=== PATIENT | female | born 1995 | race Two or more races ===

== ENCOUNTER 2019-12-22 04:47 | Emergency (ER) | payer OTHER ==
[~2019-12-22] VITALS: Ht 160 cm; Wt 59.0 kg
[2019-12-22] MEDS ORDERED: PROMETH-CODEIN 65 ML PO ×2 (06:10→06:12)
[2019-12-22] MEDS ORDERED: TESSALON PERLE100 M1 PO ×2 (06:10→06:12)
== END 2019-12-22 07:40 | disposition home or self-care (01) ==
LOC: ER 04:47
DX: R05 Cough (principal)